=== PATIENT | male | born 1965 | race Caucasian/White ===

== ENCOUNTER 2018-12-05 15:53 | Emergency (ER) | payer OTHER ==
[2018-12-05] MEDS: FLUORESCEIN STRIP LEFT EYE (17:21)
[2018-12-05] MEDS: TETRACAINE 0.5% 4 ML OPH LEFT EYE (17:21)
== END 2018-12-05 18:37 | disposition home or self-care (01) ==
LOC: FTE 15:53
DX: T15.92XA Foreign body on external eye, part unspecified, left eye, initial encounter (principal); X58.XXXA Exposure to other specified factors, initial encounter; Y92.9 Unspecified place or not applicable; Y99.9 Unspecified external cause status
CPT/HCPCS: 65205; 99283-25